=== PATIENT | female | born 1990 | race Caucasian/White ===

== ENCOUNTER 2023-03-28 08:03 | Outpatient (CLI) | payer OTHER | END 2023-03-28 08:18 | disposition home or self-care (01) | LOC: SONOGRAMA 08:03 | DX: N84.0 Polyp of corpus uteri (principal); R93.0 Abnormal findings on diagnostic imaging of skull and head, not elsewhere classified ==

== ENCOUNTER → 2025-01-01 10:05 | Outpatient (CLI) | payer OTHER | END | disposition home or self-care (01) | LOC: PRENATAL 10:05 | PROVIDERS: ATTEND Obstetrics & Gynecology Maternal & Fetal Medicine | DX: O36.80X0 Pregnancy with inconclusive fetal viability, not applicable or unspecified (principal); O99.280 Endocrine, nutritional and metabolic diseases complicating pregnancy, unspecified trimester; O26.859 Spotting complicating pregnancy, unspecified trimester; O09.529 Supervision of elderly multigravida, unspecified trimester; O34.10 Maternal care for benign tumor of corpus uteri, unspecified trimester; Z3A.08 8 weeks gestation of pregnancy ==

== ENCOUNTER 2025-03-12 09:39 | Outpatient (CLI) | payer OTHER | END 2025-03-12 09:44 | disposition home or self-care (01) | LOC: PRENATAL 09:39 | DX: O99.280 Endocrine, nutritional and metabolic diseases complicating pregnancy, unspecified trimester (principal); O09.529 Supervision of elderly multigravida, unspecified trimester; O34.10 Maternal care for benign tumor of corpus uteri, unspecified trimester; O41.00X0 Oligohydramnios, unspecified trimester, not applicable or unspecified; Z3A.18 18 weeks gestation of pregnancy ==